=== PATIENT | female | born 1975 | race Caucasian/White ===

== ENCOUNTER 2019-08-19 14:43 | Emergency (ER) | payer OTHER, SELFPAY | END 2019-08-19 15:24 | disposition left against medical advice (07) | LOC: ER 15:06 | PROVIDERS: Emergency Provider Emergency Medicine; PCP Nurse Practitioner Family | DX: Z53.21 Procedure and treatment not carried out due to patient leaving prior to being seen by health care provider (principal) | CPT/HCPCS: 99281 ==

== ENCOUNTER 2019-08-19 15:27 | Outpatient (CLI) | payer OTHER, SELFPAY ==
--- NOTE | 2019-08-19 15:45 | USCV_ITS ---
Kelly Pastor Age: 43 Gender: F : 1975 Exam Date: 08/19/2019 15:47 Ordering Phys: Ameya Hendrickson APN Technologist: Kavya Valerio Exam Location: [facility] [place] Indication: PAIN RT UPPER CALF HISTORY: LEG PAIN PROCEDURES: On the right side, the common femoral, superficial femoral, profunda femoral, popliteal, posterior tibial, greater saphenous veins and the peroneal trunk were identified and interrogated in the standard fashion. FINDINGS: Normal 2-D Doppler and augmentation and compressibility throughout the lower extremity venous structures. Additional imaging through the proximal calf veins also reveals no thrombus. Limited evaluation of the greater saphenous vein is patent with no thrombus. Significant reflux seen in right GSV below knee. CONCLUSIONS No DVT right lower extremity. Dr. Alessia Perera DO (Electronically Signed) Final Date: 19 Aug 2019 16:21 S
== END 2019-08-19 15:28 | disposition home or self-care (01) ==
LOC: RAD 15:31
PROVIDERS: PCP Nurse Practitioner Family; Visit Provider Nurse Practitioner Family
DX: I83.90 Asymptomatic varicose veins of unspecified lower extremity (principal)
CPT/HCPCS: 93971

== ENCOUNTER 2022-03-01 09:22 | Emergency (ER) | payer OTHER, SELFPAY ==
[2022-03-01 09:29] VITALS: BP 159/98; PULSE 69; RESP 14; TEMP 36.6; O2SAT 99; BMI 37.8
--- NOTE | 2022-03-01 09:34 | ECG_ITS ---
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 Measurements Intervals [place] Rate: 71 P: 23 MI: 157 QRS: -6 QRSD: 88 T: 31 QT: 371 QTc: 404 Interpretive Statements SINUS RHYTHM POSSIBLE ANTERIOR MYOCARDIAL INFARCTION , PROBABLY OLD [30 ms Q WAVE IN V3/V4, OR R < 0.2 mV IN V4] Compared to ECG 12/18/2015 23:12:37 Sinus arrhythmia no longer present Myocardial infarct finding still present Electronically Signed On 03-01-2022 13:07:35 AIRPORT CONTROL OPERATOR by Zehra Calvillo M.D. [id number]
--- NOTE | 2022-03-01 09:45 | XR_ITS ---
WS: [id number] Portable AP upright chest, 03/01/2022 Clinical Data: chest pain Comparison: Portable chest, 12/18/2015. Findings: No nodules, masses or effusions are seen. The heart is normal. The pulmonary vascularity is not increased. No pneumonia or pneumothorax is seen. Monitor leads are on the chest wall. XR/XR chest 1V portable [id number] Impression: Negative chest.
[2022-03-01 09:55] VITALS: BP 159/96; PULSE 81; O2SAT 96
--- NOTE | 2022-03-01 09:57 | W.ED.CHESTPA ---
HPI - Chest Pain General: Chief Complaint: Chest Pain Stated Complaint: chest pain Time Seen by Provider: 03/01/22 09:46 Source: patient Mode of arrival: ambulatory History of Present Illness: 46-year-old female presents emergency room with complaint of chest pain that is been off and on for the last week. Seems to be increasing in nature the chest discomfort does not radiate anywhere she does have some shortness of breath with that at times. She describes it as a pressure sensation in her chest. Patient has a history of hypertension no known history of heart disease does not smoke. MD complaint: chest discomfort Onset (ago): week(s) (1) Timing of current episode: episodic Prior episodes: Yes Onset: during rest Pain location: substernal Pain radiation: none Severity: mild Quality: aching and heaviness Relieving factors: nothing Exacerbating factors: nothing Associated symptoms: Deny abdominal pain, diaphoresis, dyspnea, fever(s), leg edema, nausea, palpitations, sense of impending doom, syncope or vomiting Treatment prior to arrival: none Review of Systems Const: Denies: fever(s) or diaphoresis Card: Denies: palpitations or syncope Resp: Denies: dyspnea GI: Denies: abdominal pain, nausea or vomiting PFS ED PFSH: Medical History (Updated 03/01/22 @ 12:44 by Julio Lara DO) Diabetes mellitus Hypertension Hypothyroidism Social History (Updated 03/01/22 @ 10:01 by Julio Lara DO) Smoking and tobacco status: never smoked Alcohol intake: never Physical Exam Const: COMMON NORMALS: no acute distress GENERAL APPEARANCE: cooperative and comfortable ORIENTATION/CONSCIOUSNESS: Yes awake, Yes oriented to person, Yes oriented to place and Yes oriented to time HENMT: COMMON NORMALS: normocephalic and atraumatic HEAD & SCALP: normocephalic and atraumatic Resp: COMMON NORMALS: normal respiratory effort, No retractions, No use of accessory muscles and clear to auscultation bilaterally AUSCULTATION: clear to auscultation bilaterally Cardio: COMMON NORMALS: regular rate, regular rhythm and No murmurs present (Cardio) RATE: regular rate RHYTHM: regular rhythm GI: COMMON NORMALS: Soft to palpation and No hepatosplenomegaly present AUSCULTATION: Yes normoactive bowel sounds PALPATION: Yes Soft to palpation, No Tenderness to palpation present (GI), No Guarding due to palpation present (GI) and Yes No hepatosplenomegaly present Extremity: COMMON NORMALS: normal to inspection, capillary refill normal, no clubbing, cyanosis or edema, no calf tenderness and no pedal edema Neuro: SENSORIUM/ORIENTATION: Yes oriented to person, Yes oriented to place and Yes oriented to time Skin: COMMON NORMALS: no rashes or lesions noted GENERAL SKIN EXAM: no rashes or lesions noted Course Vital Signs: Vital signs: Vital Signs Temperature 97.9 F 03/01/22 09:29 Pulse Rate 81 03/01/22 09:55 Respiratory Rate 14 03/01/22 09:29 Blood Pressure 159/96 03/01/22 09:55 Pulse Oximetry 96 03/01/22 09:55 Oxygen Delivery Me thod 03/01/22 09:29 MDM - Chest Pain Medical Decision Making EKG shows no acute changes. Cardiac enzymes negative despite having symptoms for 1 week. Suspect this is more GI related. We will set her up for an outpatient stress test and start her on a proton pump inhibitor Medical Records I reviewed the patient's medical records. Lab Data I reviewed the patient's lab results. 03/01/22 09:50 03/01/22 09:50 Radiology Impressions Chest X-Ray 03/01/22 09:45 Impression: Negative chest. Laboratory Results WBC 8.7 10^3/uL (4.0-10.0) 03/01/22 09:50 RBC 4.92 10^6/uL (4.1-5.3) 03/01/22 09:50 Hgb 14.8 g/dL (11.5-15.3) 03/01/22 09:50 Hct 43.7 % (37.0-47.0) 03/01/22 09:50 MCV 88.8 fl (81-99) 03/01/22 09:50 MCH 30.1 pg (28.0-34.0) 03/01/22 09:50 MCHC 33.9 g/dL (30.0-36.0) 03/01/22 09:50 RDW 12.4 % (12.1-15.1) 03/01/22 09:50 Plt Count 253 10^3/cmm (130-400) 03/01/22 09:50 MPV 10.9 fL (7.4-10.4) H 03/01/22 09:50 Neut % (Auto) 63.8 % 03/01/22 09:50 Lymph % (Auto) 26.5 % 03/01/22 09:50 Rhea % (Auto) 6.2 % 03/01/22 09:50 Eos % (Auto) 2.5 % 03/01/22 09:50 Baso % (Auto) 0.7 % 03/01/22 09:50 Neut # (Auto) 5.52 10^3/uL (1.8-7.7) 03/01/22 09:50 Lymph # (Auto) 2.3 10^3/uL (0.8-4.8) 03/01/22 09:50 Rhea # (Auto) 0.5 10^3/uL (0.2-0.9) 03/01/22 09:50 Eos # (Auto) 0.2 10^3/uL (0.0-0.8) 03/01/22 09:50 Baso # (Auto) 0.1 10^3/uL (0.0-0.1) 03/01/22 09:50 Nucleated RBC % (auto) 0 % 03/01/22 09:50 Nucleated RBCs # 0.0 /100WBC 03/01/22 09:50 Specimen Type Arterial 03/01/22 10:12 Sample Site Brachial, right 03/01/22 10:12 ABG pH 7.42 (7.35-7.45) 03/01/22 10:12 ABG pCO2 41.4 mmHg (35-45) 03/01/22 10:12 ABG pO2 79.2 mmHg (80.0-100.0) L 03/01/22 10:12 ABG HCO3 27.0 mmol/L (22-26) H 03/01/22 10:12 ABG O2 Saturation 96.7 03/01/22 10:12 ABG Base Excess 2.3 mmol/L (-2.0-2.0) H 03/01/22 10:12 Srinivas Test N/a 03/01/22 10:12 A-a O2 Gradient 2.6 mmHg (5-10) L 03/01/22 10:12 Hematocrit 44.1 % (37-47) 03/01/22 10:12 Hgb O2 Saturation 95.0 % (95-100) 03/01/22 10:12 Carboxyhemoglobin 1.0 %THgb (0.4-20.1) 03/01/22 10:12 Methemoglobin 0.8 % (0.4-1.5) 03/01/22 10:12 Total Hemoglobin 14.4 g/dL (12-16) 03/01/22 10:12 Sodium 133.0 mmol/L (131-143) 03/01/22 10:12 Potassium 3.8 mmol/L (3.5-5.0) 03/01/22 10:12 Glucose 422.0 mg/dL (70-115) H 03/01/22 10:12 Ionized Calcium 1.2 mmol/L (1.1-1.4) 03/01/22 10:12 O2 Delivery Device Room air 03/01/22 10:12 FiO2 21.0 % 03/01/22 10:12 Filler And Trimmer ID Amh 03/01/22 10:12 Sodium 134 mmol/L (136-145) L 03/01/22 09:50 Potassium 4.1 mmol/L (3.5-5.1) 03/01/22 09:50 Chloride 96 mmol/L (98-107) L 03/01/22 09:50 Carbon Dioxide 26 mmol/L (22-29) 03/01/22 09:50 Anion Gap 16.1 (5-19) 03/01/22 09:50 BUN 10 mg/dL (6-20) 03/01/22 09:50 Creatinine 0.5 mg/dL (0.5-0.9) 03/01/22 09:50 GFR Calculation 131.7 mL/min (90-130) H 03/01/22 09:50 Glucose 445 mg/dL (65-115) H 03/01/22 09:50 Calculated Osmolality 296 mOsm/kg (285-295) H 03/01/22 09:50 Calcium 9.3 mg/dL (8.5-10.5) 03/01/22 09:50 Total Bilirubin 0.2 mg/dL (0.15-1.2) 03/01/22 09:50 AST 17 U/L (0-32) 03/01/22 09:50 ALT 29 U/L (0-33) 03/01/22 09:50 Alkaline Phosphatase 151 U/L (35-105) H 03/01/22 09:50 Troponin T Baseline 7 ng/L (0-10) 03/01/22 09:50 Troponin T 120 Minute 6.00 ng/L (0-10) 03/01/22 12:09 Total Protein 7.1 g/dL (6.6-8.7) 03/01/22 09:50 Albumin 3.5 g/dL (3.5-5.2) 03/01/22 09:50 Globulin 3.6 g/dL (1.3-4.6) 03/01/22 09:50 Discharge Plan Discharge Patient Disposition: Home Clinical Impression: Atypical chest pain Condition: Stable Prescriptions: New Protonix 40 mg tablet,delayed release (DR/EC) 40 mg PO BID 56 Days Qty: 112 0RF No Action ibuprofen 800 mg tablet 800 mg PO TID PRN (Reason: Pain) metoprolol succinate 50 mg tablet extended release 24 hr 50 mg PO DAILY glipizide 10 mg tablet 10 mg PO BID Aspir-81 81 mg Tablet,Delayed Release (Dr/Ec) 81 mg PO DAILY levothyroxine 100 mcg tablet 100 mcg PO DAILY alprazolam 0.5 mg tablet 0.25 - 0.5 mg PO BID PRN (Reason: Anxiety) Discharge Orders: Discharge ED (Routine); Ordered 03/01/22 Ordered By: Julio Lara Referrals: Hou,ALEXIA Hendrickson [Primary Care Provider] - Discharge Diet: Usual diet Discharge Activity: Limit activity as instructed Patient Instructions: Opioid Safety, Pain Management Activity Restrictions/Additional Instructions: You were seen today for a complaint of chest pain. Your EKG did not show anything acute and your cardiac enzymes were negative. Continue taking the baby aspirin daily that you have been. We will start you on a medicine for your stomach and Case management will make arrangements for you to get an outpatient stress test. Avoid exertional activity till stress test is completed. Given your current symptoms return to the emergency room. Coding Level of Care Code ED Senior Design Engineering Specialist for Michelle Ortez
[2022-03-01 09:58] LABS: Basophils # 0.1 10^3/uL (0.0-0.1); Basophils % 0.7 %; Eosinophils # 0.2 10^3/uL (0.0-0.8); Eosinophils % 2.5 %; Hematocrit 43.7 % (37.0-47.0); Hemoglobin 14.8 g/dL (11.5-15.3); Lymphocytes # 2.3 10^3/uL (0.8-4.8); Lymphocytes % 26.5 %; Mean Corpuscular HGB Conc 33.9 g/dL (30.0-36.0); Mean Corpuscular Hemoglobin 30.1 pg (28.0-34.0); Mean Corpuscular Volume 88.8 fl (81-99); Mean Platelet Volume 10.9 fL (7.4-10.4); Monocytes # 0.5 10^3/uL (0.2-0.9); Monocytes % 6.2 %; Neutrophils # 5.52 10^3/uL (1.8-7.7); Neutrophils % 63.8 %; Nucleated Red Blood Cells % 0 %; Platelet Count 253 10^3/cmm (130-400); Red Blood Count 4.92 10^6/uL (4.1-5.3); Red Cell Distribution Width 12.4 % (12.1-15.1); White Blood Count 8.7 10^3/uL (4.0-10.0)
[2022-03-01 10:18] LABS: Alanine Aminotransferase 29 U/L (0-33); Albumin Level 3.5 g/dL (3.5-5.2); Alkaline Phosphatase 151 U/L (35-105); Anion Gap 16.1 (5-19); Aspartate Amino Transferase 17 U/L (0-32); Blood Urea Nitrogen 10 mg/dL (6-20); Calcium 9.3 mg/dL (8.5-10.5); Carbon Dioxide 26 mmol/L (22-29); Chloride 96 mmol/L (98-107); Globulin 3.6 g/dL (1.3-4.6); Glomerular Filtration Rate 131.7 mL/min (90-130); Glucose 445 mg/dL (65-115); Osmolality Calculated 296 mOsm/kg (285-295); Potassium 4.1 mmol/L (3.5-5.1); Sodium 134 mmol/L (136-145); Total Bilirubin 0.2 mg/dL (0.15-1.2); Total Protein 7.1 g/dL (6.6-8.7)
[2022-03-01 10:19] LABS: Troponin(5th) Baseline 7 ng/L (0-10)
[2022-03-01 10:23] LABS: ABG PCO2 41.4 mmHg (35-45); ABG PH Result 7.42 (7.35-7.45); Alveolar-Arterial Oxygen Gradi 2.6 mmHg (5-10); Arterial Blood Gas Hematocrit 44.1 % (37-47); Base Excess ABG 2.3 mmol/L (-2.0-2.0); Blood Gas Operator Identificat AMH; Blood Gas Sample Site Brachial, right; Blood Gas Sample Type Arterial; Ionized Calcium Level - ABG 1.2 mmol/L (1.1-1.4); Methemoglobin 0.8 % (0.4-1.5); Oxygen Device ROOM AIR; Oxygen Saturation ABG 96.7; PO2 ABG 79.2 mmHg (80.0-100.0); Potassium Level - ABG 3.8 mmol/L (3.5-5.0); Total Hemoglobin 14.4 g/dL (12-16)
--- NOTE | 2022-03-01 11:50 | ECG_ITS ---
[facility] Test Date: 2022-03-01 Pat Name: Kelly Pastor Department: Room: Gender: Female Senior Executive Assistant: : 1975 Requested By: Julio Macias Order Number: [id number] Nettie MD: Zehra Calvillo M.D. Measurements Intervals [place] Rate: 76 P: 11 OK: 161 QRS: -12 QRSD: 84 T: 21 QT: 372 QTc: 419 Interpretive Statements SINUS RHYTHM MINIMAL VOLTAGE CRITERIA FOR LVH, CONSIDER NORMAL VARIANT [MEETS CRITERIA IN ONE OF: R(aVL), S(V1), R(V5), R(V5/V6)+S(V1)] POSSIBLE ANTERIOR MYOCARDIAL INFARCTION , PROBABLY OLD [30 ms Q WAVE IN V3/V4, OR R < 0.2 mV IN V4] Compared to ECG 03/01/2022 09:43:07 No significant changes Electronically Signed On 03-01-2022 13:13:16 NUISANCE WILDLIFE CONTROL OPERATOR by Zehra Calvillo M.D. [id number]
[2022-03-01 12:55] VITALS: BP 140/100; PULSE 86; RESP 16; O2SAT 98
--- NOTE | 2022-03-04 13:49 | DCPLANNER ---
Addendum entered by Sima Grimaldo 05/23/22 08:01: This appointment was rescheduled Addendum entered by Sima Grimaldo 05/15/22 13:29: Patient has an outpatient stress test scheduled for Tuesday, May 17, 2022 at 6:45. Centralized scheduling will call patient with appointment information. Original Note: manager union had message to schedule an outpatient stress test for patient. manager union faxed signed order to centralized scheduling, who will call patient with appointment information.
== END 2022-03-01 12:59 | disposition home or self-care (01) ==
PROVIDERS: Physician Assistant; Emergency Provider Family Medicine; PCP Nurse Practitioner Family
DX: R07.89 Other chest pain (principal); I10 Essential (primary) hypertension
CPT/HCPCS: 36600; 71045; 80051; 80053; 82330; 82805; 84484; 85025; 93005; 99285